=== PATIENT | male | born 1985 | race Caucasian/White ===

== ENCOUNTER 2021-01-01 19:17 | Emergency (ER) | payer OTHER ==
[2021-01-01 19:49] LABS: HEMOGLOBIN 15.2 gm/dl (14.0-17.5); RED BLOOD COUNT 4.98 M/UL (4.20-5.50); WHITE BLOOD COUNT 11.2 K/UL (4.5-11.0)
[2021-01-01 20:47] LABS: BUN/CREATININE RATIO 11 (0-10)
[2021-01-01] MEDS ORDERED: IBU600 MG PO ×2 (21:17→21:48)
[2021-01-01] MEDS ORDERED: AUGMENTIN 875-1 EACH PO ×2 (21:17→21:48)
== END 2021-01-01 22:00 ==
LOC: ER1 19:17
PROVIDERS: Family Medicine
DX: S81.832A Puncture wound without foreign body, left lower leg, initial encounter (principal); F10.10 Alcohol abuse, uncomplicated; K02.9 Dental caries, unspecified; F17.200 Nicotine dependence, unspecified, uncomplicated; Y90.6 Blood alcohol level of 120-199 mg/100 ml; W34.00XA Accidental discharge from unspecified firearms or gun, initial encounter
CPT/HCPCS: 73590; 80053; 85025; 96374; 99283; G0480; J0690